=== PATIENT | female | born 1955 | race Caucasian/White ===

== ENCOUNTER → 2018-10-23 09:46 | Outpatient (CLI) | payer MEDICARE, SELFPAY ==
--- NOTE | 2018-10-23 | DI.MG.S_ITS ---
BILATERAL DIGITAL DIAGNOSTIC MAMMOGRAM 3D/2D: 10/23/2018 CLINICAL: Focal left breast tenderness and pain. Comparison is made to exams dated: 06/03/2017 mammogram, 05/11/2017 mammogram, and 04/02/2015 mammogram - [facility]. There are scattered fibroglandular elements in both breasts. There is a square marker overlying the skin of the lower left breast at middle depth at the site of the patient's reported focal pain and tenderness. There is no underlying mammographic abnormality. There is an oval circumscribed focal asymmetry of the lower left breast near 6:00 position anterior depth. No other significant masses, calcifications, or other findings are seen in either breast. IMPRESSION: INCOMPLETE: NEEDS ADDITIONAL IMAGING EVALUATION 1) No mammographic abnormality to correlate with the site of the patient's reported focal lower left breast pain and tenderness at middle depth. Targeted diagnostic ultrasound recommended for further evaluation, which will be performed immediately following this exam. 2) There is an oval circumscribed focal asymmetry of the lower left breast near 6:00 position anterior depth. Targeted diagnostic ultrasound recommended for further evaluation, which will be performed immediately following this exam. This exam was interpreted at Station ID: [id number]. NOTE: For mammograms, a report in lay terms will be sent to the patient. Approximately 15% of breast malignancies will not be visualized mammographically. In the management of a palpable breast mass, a negative mammogram must not discourage biopsy of a clinically suspicious lesion. Electronically Signed By: Kristopher Benton M.D. ecl/:10/23/2018 11:06:25 ACR BI-RADS Category 0: Incomplete [id number]
--- NOTE | 2018-10-23 | DI.US.S_ITS ---
LIMITED ULTRASOUND OF LEFT BREAST: 10/23/2018 CLINICAL: Left breast tenderness and pain. Abnormality seen on diagnostic left mammogram. Comparison is made to exams dated: 10/23/2018 mammogram - [facility], 06/03/2017 mammogram, 05/11/2017 mammogram, 04/02/2015 mammogram - [facility], 12/25/2012 mammogram, and 06/22/2010 mammogram - [facility]. Color flow and real-time ultrasound of the left breast 4-6 o'clock region were performed. Alvarez scale images of the real-time examination were reviewed. Targeted ultrasound was performed in the region of the patient's reported focal pain and tenderness of the left breast at 4:00 to 5:00 position. No underlying breast mass or abnormality is identified. There is a 0.8 x 0.7 x 0.4 cm oval indistinct hypoechoic cyst with increased through transmission/posterior acoustic enhancement, and no vascularity on Doppler ultrasound located in the left breast at 5:30 position 2 cm from the nipple. There are low-level internal echogenic foci. This appears to correlate with the finding seen on mammography. IMPRESSION: PROBABLY BENIGN 1) No ultrasound findings to explain patient's reported focal pain and tenderness of the left breast at 4:00 to 5:00 position. Recommend clinical follow-up for further evaluation and management of the patient's reported symptoms. 2) 0.8 cm probable complicated cyst in the left breast at 5:30 position 2 cm from the nipple. A follow-up diagnostic mammogram and targeted left breast ultrasound in 6 months is recommended to demonstrate stability. The patient is advised to monitor her breasts and to return sooner for re-evaluation should she feel anything grow or change. This exam was interpreted at Station ID: [id number]. Electronically Signed By: Kristopher Benton M.D. ecl/:10/23/2018 11:14:48 letter sent: Followup Recommended Ultrasound BI-RADS: 3 Probably benign
== END ==
PROVIDERS: Family Provider Family Medicine; PCP Family Medicine
DX: N64.4 Mastodynia (principal); R92.8 Other abnormal and inconclusive findings on diagnostic imaging of breast
CPT/HCPCS: 76642; 77066; G0279